=== PATIENT | male | born 1955 | race Caucasian/White ===

== ENCOUNTER 2025-08-28 06:12 | Day surgery (SDC) | payer OTHER, SELFPAY ==
[2025-08-28] VITALS (8 sets, daily range): BP systolic 110–143; BP diastolic 80–85; PULSE 53–57; RESP 16–18; TEMP 36–36.7; O2SAT 95–100; BMI 30.6
[2025-08-28] MEDS: Lactated Ringers 1,000 ML 15 ML IV (07:07)
--- NOTE | 2025-08-28 07:08 | EKG12_ITS ---
Test Reason : PREOP Blood Pressure : */* mmHG Vent. Rate : 53 BPM Atrial Rate : 53 BPM P-R Int : 170 ms QRS Dur : 104 ms QT Int : 462 ms P-R-T Axes : 18 20 42 degrees QTcB Int : 433 ms Sinus bradycardia Otherwise normal ECG No previous ECGs available Confirmed by HEIDY PARTIDA, KO ([id number]), food expeditor NOLAN WOODY ([id number]) on 08/30/2025 7:17:28 AM Referred By: Danae Rangel Confirmed By: KO MOODY MD
--- NOTE | 2025-08-28 07:25 | HP.PCM_ITS ---
HPI - General General Date of Admission: 08/28/25 Date of Service: 08/28/25 Chief Complaint: colonoscopy HPI Narrative The patient is a 70-year-old male who is being seen today for colonoscopy. Patient has a personal history of polyps. His last colonoscopy has been about 5 years ago. A polyp was encountered at that time. He returns today to discuss colonoscopy. He denies any new symptoms from a GI standpoint. No blood in the stools. No black or tarry stools. No constipation or diarrhea. [facility] Medical History (Updated 08/22/25 @ 09:45 by Romelia Fall) Wears glasses Cancer Alcohol use History of steroid therapy Arthritis Injury of head and neck History of diverticulitis Non-smoker Asthma Leg cramps History of stress test Positional vertigo History of prostate cancer Back pain History of colon polyps HTN (hypertension) Home Medications ?Medication ?Instructions ?Recorded ?Last Taken ?Type acetaminophen 325 mg tablet 325 mg PO ONCE PRN fever o r pain 08/13/25 Unknown History (Tylenol) amlodipine 10 mg tablet 10 mg PO QDAY 08/13/2508/28 History cortisone 50 mg/mL intramuscular 50 mg IM .q 3 months 08/13/25 Unknown History suspension albuterol sulfate 90 mcg/actuation 1 inh inhalation Q4 H PRN shortness 08/22/25 Unknown History breath activated powder inhaler of breath or wheezing Allergy/AdvReac Type Severity Reaction Status Date / Time tamsulosin Allergy Severe Other Verified 08/22/25 09:34 bee venom protein (honey Allergy Mild Other Verified 08/22/25 09:33 bee) (bees) Family History (Updated 08/13/25 @ 13:55 by Ana Barone) Mother Heart disease Hypertension Kidney disease Uncle Cancer skin Autoimmune disease Surgical History (Updated 08/13/25 @ 13:53 by Ana Barone) S/P inguinal hernia repair S/P prostatectomy S/P tonsillectomy Social History (Updated 08/13/25 @ 13:55 by Ana Barone) Smoking Status: Never smoker alcohol intake: current Vital Signs Vital Signs Vital Signs: 08/28/25 06:49 08/28/25 06:50 Temperature 98.0 F Temperature Source Temporal Pulse Rate 53 L Respiratory Rate 18 Respiratory Pattern Normal Blood Pressure 143/80 H Blood Pressure Mean 101 Blood Pressure Source Monitor Blood Pressure Position Semi-Fowlers Blood Pressure Location Right Arm Pulse Ox 96 Oxygen Delivery Method Room Air Weight Weight: 213 lb 10.047 oz Body Mass Index (BMI) 30.6 Physical Exam Const alert, oriented x3 and no apparent distress Assessment & Plan Assessment/Plan (1) History of colon polyps: PLAN: Plan Colonoscopy planned for today
--- NOTE | 2025-08-28 07:26 | PCM.PRE.AN2 ---
ASA Classification* ASA Classification ASA Classification: 2 Assessment & Plan Anesthesia* Anesthesia Assessment Anesthesia Assessment: Discussed sedation and/or anesthesia options, risks, benefits, and alternatives with patient/parents/legal guardian/POA. Questions invited. The patient/parents/legal guardian/POA seems to understand and agrees to proceed with anesthesia plan. Reviewed the physical assessment, medical history, allergy history and patient home medications list prior to surgery/procedure/anesthetic and documented any changes. Performed airway and anesthesia risk assessments. 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 When Was Last Pacemaker Check QUESTION #4 FULL TEXT: You/Your Family Experience fever (hyperthermia) with Anesthesia Last Oral Intake Last Oral intake: Last Oral Intake NPO since 00:00 08/28/25 06:50 Meds taken in AM with sips of Yes 08/28/25 06:50 water? Meds patient instructed to amlodipine 08/28/25 06:50 take am of surgery PONV PONV - electric motor repairer: PONV - electric motor repairer Female No 08/22/25 09:45 HX of Motion Sickness No 08/22/25 09:45 HX of N/V After Surgery No 08/22/25 09:45 Non-Smoker Yes 08/22/25 09:45 Duration of Surgery greater No 08/22/25 09:45 than 60 minutes Number of Risk Factors 1 08/22/25 09:45 PONV Score Low Risk 08/22/25 09:45 Height & Weight Height & Weight: Anesthesia: Height & Weight Height 5 ft 10 in 08/28/25 06:50 Weight: 96.9 kg 08/28/25 06:50 Body Mass Index (BMI) 30.6 08/28/25 06:50 Respiratory Assessment Respiratory Assessment - electric motor repairer: Respiratory Tract Infection Hx - electric motor repairer Hx Respiratory Tract Infection No 08/22/25 09:45 STOP Sleep Apnea STOP Sleep Apnea - electric motor repairer: STOP Sleep Apnea - electric motor repairer Hx Hypertension Yes: CONTROLLED ON MED 08/22/25 09:45 Hx Sleep Apnea No 08/22/25 09:45 CPAP BIPAP Do you snore loudly (louder No 08/22/25 09:45 than talking or can be heard Do you often feel tired/ No 08/22/25 09:45 fatigued/ sleepy during daytime? Has anyone observed you stop No 08/22/25 09:45 breathing during sleep? STOP Results Negative 08/22/25 09:45 QUESTION #5 FULL TEXT : Do you snore loudly (louder than talking or can be heard through closed doors)? 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 Specify any problems Hx of Preganancy in last 3 N/A 08/22/25 09:45 Months Nurse Filling Out Transfusion VCHRISTIN 08/22/25 09:45 & Questions: Date: 08/22/25 08/22/25 09:45 Time: 09:46 08/22/25 09:45 Patient unable to answer at this time (ie. confused, unrespo /Reproduction History /Reproductive History - electric motor repairer: /Reproductive Hx- electric motor repairer Hx Now No 08/22/25 09:45 Gestational Age (in weeks): EDC: Hx Hx Para Hx Section SAB No 08/22/25 09:45 Active Medications Active Medications: Current Medications Generic Name Dose Route Start Last Admin Trade Name Freq PRN Reason Stop Dose Admin Lactated Ringer's 1,000 mls @ 15 mls/hr 08/28/25 06:30 08/28/25 07:07 IV 15 mls/hr .Q48H ALLA Administration PFSH Medical History Wears glasses Cancer Alcohol use History of steroid therapy Arthritis Injury of head and neck History of diverticulitis Non-smoker Asthma Leg cramps History of stress test Positional vertigo History of prostate cancer Back pain History of colon polyps HTN (hypertension) Home Medications ?Medication ?Instructions ?Recorded ?Last Taken ?Type acetaminophen 325 mg tablet 325 mg PO ONCE PRN fever or pain 08/13/25 Unknown History (Tylenol) amlodipine 10 mg tablet 10 mg PO QDAY 08/13/25 08/28/25 History cortisone 50 mg/mL intramuscular 50 mg IM .q 3 months 08/13/25 Unknown History suspension albuterol sulfate 90 mcg/actuation 1 inh inhalation Q4H PRN shortness 08/22/25 Unknown History breath activated powder inhaler of breath or wheezing Allergy/AdvReac Type Severity Reaction Status Date / Time tamsulosin Allergy Severe Other Verified 08/22/25 09:34 bee venom protein (honey Allergy Mild Other Verified 08/22/25 09:33 bee) (bees) Family History Mother Heart disease Hypertension Kidney disease Uncle Cancer skin Autoimmune disease Surgical History S/P inguinal hernia repair S/P prostatectomy S/P tonsillectomy Social History Smoking Status: Never smoker alcohol intake: current Review of Systems (Anesthesia) ROS Narrative System reviewed and no additional complaints, except as documented.
--- NOTE | 2025-08-28 08:32 | OP.PROVAT_ITS ---
08/28/2025 Danae Rangel Md Re : Colonoscopy procedure for Domingo Bauer Dear Dr. Rangel This procedure was performed on Thursday, August 28, 2025. My impressions and recommendations are as follows: Impressions : - Preparation of the colon was fair. - Diverticulosis in the sigmoid colon. - Hemorrhoids. - The examination was otherwise normal on direct and retroflexion views. - No specimens collected. Recommendations : - Discharge patient to home (ambulatory). - High fiber diet. - Repeat colonoscopy in 5 years for surveillance. - Return to my office PRN. - Continue present medications. My findings are described in the full procedure note, which is enclosed. If I can be of further assistance, please feel free to contact me at . Sincerely, Jeromy Mendoza MD 08/28/2025 8:31:35 AM This report has been signed electronically.
--- NOTE | 2025-08-28 08:32 | OP.COLON_ITS ---
Patient Name: Domingo Bauer Procedure Date: 08/28/2025 7:42 AM Date of : 1955 Age: 70 Procedure: Colonoscopy Indications: High risk colon cancer surveillance: Personal history of colonic polyps Providers: Jeromy Mendoza MD Referring MD: Danae Rangel Md Medicines: Monitored Anesthesia Care Patient Profile: Refer to note in patient chart for documentation of history and physical. Last Colonoscopy: 5 years ago. Complications: No immediate complications. Estimated blood loss: None. Procedure: Pre-Anesthesia Assessment: - Prior to the procedure, a History and Physical was performed, and patient medications and allergies were reviewed. The patient's tolerance of previous anesthesia was also reviewed. The risks and benefits of the procedure and the sedation options and risks were discussed with the patient. All questions were answered, and informed consent was obtained. Prior Anticoagulants: The patient has taken no anticoagulant or antiplatelet agents. ASA Grade Assessment: II - A patient with mild systemic disease. After reviewing the risks and benefits, the patient was deemed in satisfactory condition to undergo the procedure. After I obtained informed consent, the scope was passed under direct vision. Throughout the procedure, the patient's blood pressure, pulse, and oxygen saturations were monitored continuously. The colonoscope was introduced through the anus and advanced to the cecum, identified by appendiceal orifice and ileocecal valve. The ileocecal valve, appendiceal orifice, and rectum were photographed. The entire colon was well visualized. The colonoscopy was performed without difficulty. The patient tolerated the procedure well. The quality of the bowel preparation was fair. Moderate Sedation: See the other procedure note for documentation of moderate sedation with intraservice time. Scope In: 7:51:48 AM Scope Withdrawal Time 0 hours 17 minutes 13 seconds Scope Out: 8:20:55 AM Total Procedure Duration Time 0 hours 29 minutes 7 seconds Findings: The perianal and digital rectal examinations were normal. Many small and large-mouthed diverticula were found in the sigmoid colon. Hemorrhoids were found during retroflexion. The hemorrhoids were moderate. The exam was otherwise without abnormality on direct and retroflexion views. Impression: - Preparation of the colon was fair. - Diverticulosis in the sigmoid colon. - Hemorrhoids. - The examination was otherwise normal on direct and retroflexion views. - No specimens collected. Recommendation: - Discharge patient to home (ambulatory). - High fiber diet. - Repeat colonoscopy in 5 years for surveillance. - Return to my office PRN. - Continue present medications. Procedure Code(s): --- Professional --- 21252, Colonoscopy, flexible; diagnostic, including collection of specimen(s) by brushing or washing, when performed (separate procedure) Diagnosis Code(s): --- Professional --- Z86.010, Personal history of colonic polyps K57.30, Diverticulosis of large intestine without perforation or abscess without bleeding K64.9, Unspecified hemorrhoids CPT copyright 2021 [employer]. All rights reserved. The codes documented in this report are preliminary and upon career [employer] teacher review may be revised to meet current compliance requirements. Jeromy Mendoza MD 08/28/2025 8:31:35 AM This report has been signed electronically. Number of Addenda: 0 Note Initiated On: 08/28/2025 7:42 AM
--- NOTE | 2025-08-28 08:43 | PCM.POST.ANE ---
Anesthesia: Postop Eval I Current Vital Signs Temperature: 97 F Pulse Rate: 57 Blood Pressure: 112/81 Respiratory Rate: 16 Pulse Ox: 97 Oxygen Delivery Method: Room Air Assessment Airway patent: Yes Spontaneous unlabored respirations: Yes Mental status: Awake and Calm nausea: No Vomiting: No Anesthesia Complication: No Fluid Hydration Crystalloid volume administer (ml): 600 Total IV fluid infused: 600 Progress Note Anesthesia document: Postop Eval 1 completed: Yes
--- NOTE | 2025-08-28 09:12 | PCM.POSTANE2 ---
Anesthesia Postop Eval I Sum Postop Eval Completion status Anesthesia document: Postop Eval 1 completed: Yes Anesthesia Postop Eval I Summary Anesthesia Postop Eval I Summary: Anesthesia Postop Eval I: Assessment Summary Airway patent Yes 08/28/25 08:44 [email or web address] Spontaneous unlabored Yes 08/28/25 08:44 [email or web address] respirations Mental status Awake,Calm 08/28/25 08:44 [email or web address] nausea No 08/28/25 08:44 [email or web address] Vomiting No 08/28/25 08:44 [email or web address] Anesthesia Postop Eval I: Fluid Summary Crystalloid volume administer 600 08/28/25 08:44 [email or web address] (ml) Colloids volume administered ( ml) Blood Product volume administered (ml) Total IV fluid infused 600 08/28/25 08:44 [email or web address] Anesthesia Postop Eval I: Summary Notes Anesthesia Complication No 08/28/25 08:44 [email or web address] Anesthesia Complication Comment: Post-operative progress note Anesthesia: Postop Eval II Evaluation Mental status: Awake and Calm Pain Level: 0 nausea: No Vomiting: No Complications Anesthesia Complication: No
== END 2025-08-28 09:02 | disposition home or self-care (01) ==
LOC: EN 06:13 → AC 06:15
PROVIDERS: PCP Family Medicine; Referring Provider Family Medicine; Visit Provider Surgery
PROC: 0DJD8ZZ Inspection of Lower Intestinal Tract, Via Natural or Artificial Opening Endoscopic (ICD-10-PCS; CPT 45378; principal; 2025-08-28 07:25)
DX: Z12.11 Encounter for screening for malignant neoplasm of colon (principal); K64.9 Unspecified hemorrhoids; Z86.0100 Personal history of colon polyps, unspecified; Z79.899 Other long term (current) drug therapy; K57.30 Diverticulosis of large intestine without perforation or abscess without bleeding; I10 Essential (primary) hypertension; Z85.46 Personal history of malignant neoplasm of prostate
CPT/HCPCS: 45378; 93005; J2405